=== PATIENT | male | born 1940 | race Caucasian/White ===

== ENCOUNTER → 2020-01-22 11:19 | Outpatient (CLI) | payer MEDICARE, OTHER, SELFPAY ==
[2016-01-22 05:52] VITALS: BMI 25.4
== END ==
PROVIDERS: Referring Provider Urology; Visit Provider Urology
DX: N39.0 Urinary tract infection, site not specified (principal)
CPT/HCPCS: 87077; 87086; 87088; 87186

== ENCOUNTER → 2020-01-31 07:19 | Outpatient (CLI) | payer MEDICARE, SELFPAY ==
--- NOTE | 2020-01-31 07:23 | CT_ITS ---
STUDY: CT ABDOMEN AND PELVIS WITHOUT CONTRAST REASON FOR EXAM: Male, 79 years old. HEMATURIA/KIDNEY STONES -- SURG-GB RADIATION DOSAGE (If Supplied By Facility): CTDIvol = ( 6.62 ) mGy, DLP = ( 340.95 ) mGycm TECHNIQUE: Transaxial images were obtained from the dome of the diaphragm to the symphysis pubis without oral contrast, and without intravenous contrast. Sagittal and coronal images were reconstructed. Individualized dose optimization techniques were used for this CT. COMPARISON: Comparison is made with prior examination of October 03, 2015. FINDINGS: The visualized lung bases are unremarkable. Coronary artery calcifications. Normal liver. Calcified granuloma in the dome of the right lobe of the liver. There are surgical clips in the gallbladder fossa consistent with a prior cholecystectomy. There are multiple benign calcified granulomata of the spleen. There are pancreatic calcifications in the distribution of the ducts consistent with chronic pancreatitis. Normal bilateral adrenal glands. Normal right kidney. There is a 3.1 cm x 3.3 cm cyst in the anterior inferior aspect of the left kidney. There is a 5.4 mm calculus in the lower posterior pole of the left kidney. Normal visualized stomach. Normal small intestine. Normal colon. The appendix is visualized and appears normal. There is diffuse atherosclerotic calcification of the abdominal aorta, without a demonstrated aneurysm. Normal inferior vena cava. There is borderline retroperitoneal lymphadenopathy with enlarged nodes no greater than 10mm in the short axis diameter. There is a faint 2.7 cm x 3.7 cm polypoid lesion at the base of the left side of the bladder. There is enlargement of the prostate gland. The questionable polypoid mass within the bladder base may represent protrusion of the prostate. Normal abdominal wall. There are mild degenerative changes of the visualized lumbar spine. CT/Abdomen/Pelvis without Cont IMPRESSION: Left renal cyst. 5.4 mm calculus in the lower pole calyx of the left kidney. Prostatic enlargement with indentation at the bladder base and possible protrusion into the bladder. Clinical correlation is recommended. Electronically Signed: Elie Mckeon, at 13:42 EST , Service support ,
== END ==
PROVIDERS: Referring Provider Urology; Visit Provider Urology
DX: R31.9 Hematuria, unspecified (principal)
CPT/HCPCS: 74176

== ENCOUNTER → 2020-06-19 17:43 | Outpatient (CLI) | payer MEDICARE, SELFPAY ==
[2016-01-22 05:52] VITALS: BMI 25.4
== END ==
PROVIDERS: Referring Provider Urology; Visit Provider Urology
DX: N39.0 Urinary tract infection, site not specified (principal)
CPT/HCPCS: 87077; 87086; 87088; 87186

== ENCOUNTER 2020-07-27 09:51 | Emergency (ER) | payer OTHER, MEDICARE, SELFPAY ==
[2020-07-27 09:52] VITALS: BP 152/106; PULSE 62; RESP 17; TEMP 36.3; O2SAT 99; BMI 23.5
--- NOTE | 2020-07-27 10:20 | RAD_ITS ---
STUDY: X-RAY CHEST REASON FOR EXAM: Male, 79 years old. CHEST PAIN FOR SEVERAL DAYS, HTN TECHNIQUE: Single AP portable view of the chest. COMPARISON: 01/22/2016 FINDINGS: The lungs are clear and expanded. There is no demonstrated pleural abnormality. Normal size heart. Normal mediastinum and gio. Normal visualized pulmonary arteries. Normal visualized aortic arch and descending thoracic aorta. Normal visualized thoracic spine. Normal visualized ribs, clavicles, and shoulders. There is no demonstrated abnormality of the visualized soft tissue structures of the upper abdomen. RAD/Chest 1 View (Portable) IMPRESSION: Normal x-ray examination of the chest. Electronically Signed: John Fleming MD at 11:15 EDT Tel , Service support ,
--- NOTE | 2020-07-27 10:20 | EKG12_ITS ---
Test Reason : REPEAT Blood Pressure : / mmHG Vent. Rate : 066 BPM Atrial Rate : 066 BPM P-R Int : 140 ms QRS Dur : 086 ms QT Int : 448 ms P-R-T Axes : 042 060 057 degrees QTc Int : 469 ms Sinus rhythm with occasional Premature ventricular complexes Otherwise normal ECG Confirmed by MICHELLE PEARSON, EFRAIN ([id number]), supervising film or videotape editor MICHAEL WADE ([id number]) on 07/31/2020 11:27:13 AM Referred By: CL Confirmed By:EFRAIN MARTINEZ MD
[2020-07-27 10:37] LABS: Absolute Neutrophil Count 4.1 X10^3/uL (2.0-7.7); Basophil# 0.01 X10^3/uL; Basophil% 0.2 % (0-1); Eosinophil# 0.04 X10^3/uL; Eosinophils% 0.7 % (0-5); Hematocrit 47.5 % (40-54); Hemoglobin 15.1 g/dL (13.0-16.5); Lymphocyte % 16.6 % (19-41); Mean Corp Hgb Conc 31.8 g/dL (32-36); Mean Corpuscular Hgb 27.9 pg (27.0-32.0); Mean Corpuscular Volume 87.6 fL (80-94); Mean Platelet Vol. 8.4 fl (6.2-12.0); Monocyte# 0.33 X10^3/uL; Monocyte% 6.1 % (0-10); NRBC Flagged by Analyzer 0 % (0-5); Neutrophil # 4.12 X10^3/uL (2.7-7.7); Platelet Count 172 K/mm3 (150-450); RBC Distribution Width CV 12.7 % (11.6-14.6); RBC Distribution Width SD 40.6 fl (35.1-43.9); Red Blood Count 5.42 M/mm3 (4.6-6.2); White Blood Count 5.4 K/mm3 (4.4-11.0)
[2020-07-27] MEDS: 0.9% Normal Saline 1,000 ML 1000 ML IV (10:46)
[2020-07-27 10:50] LABS: Anion Gap 3 (5-15); BUN 21 mg/dL (7-18); BUN/Creat Ratio 20.4 RATIO (10-20); Calcium,Total 9.2 mg/dL (8.5-10.1); Chloride 107 mmol/L (98-107); Creatinine, Serum 1.03 mg/dL (0.70-1.30); EST Glomerular Filtration Rate 74 mL/min (>60); Est Glom Filt Rate - Afr Amer 90 mL/min (>60); Estimated Creatinine Clearance 60.06 ml/min; Glucose 96 mg/dL (74-106); Potassium 4.2 mmol/L (3.5-5.1); Sodium Level 140 mmol/L (136-145)
[2020-07-27 11:39] VITALS: BP 181/86; PULSE 65; RESP 16; O2SAT 98; O2SAT 99
[2020-07-27 11:45] LABS: Bacteria 0 SEEN /hpf (None Seen); Mucous, Urine 0 SEEN /hpf (<or=2+); Squamous Epithelial Cells - UA 0 SEEN /hpf (0-5); White Blood Cells 0 SEEN /hpf (0-5)
[2020-07-27 11:52] LABS: Color, Urine Yellow (Yellow); Glucose, Dipstick Normal (Normal); Ketone-Dipstick Negative (Negative); Leukocyte Esterase-Dipstick Negative /ul (Negative); Nitrite-Dipstick Negative (Negative); Occult Blood-Urine 10 /ul (Negative); Protein-Dipstick Negative (Negative); Urine Bilirubin Dipstick Negative (Negative); Urine Clarity Clear (Clear); Urine Urobilinogen Normal (Normal)
[2020-07-27 12:11] LABS: Red Blood Cells-Urine 0-5 SEEN /hpf (0-5)
[2020-07-27 12:55] VITALS: BP 171/78; PULSE 63; RESP 18; O2SAT 97
[2020-07-27] MEDS: Labetalol (Prefilled) 20 MG/4 ML IV (13:02)
--- NOTE | 2020-07-27 13:30 | EKG12_ITS ---
Test Reason : CP Blood Pressure : / mmHG Vent. Rate : 066 BPM Atrial Rate : 066 BPM P-R Int : 138 ms QRS Dur : 088 ms QT Int : 424 ms P-R-T Axes : 028 062 060 degrees QTc Int : 444 ms Sinus rhythm with occasional Premature ventricular complexes Otherwise normal ECG Confirmed by MICHELLE PEARSON, EFRAIN ([id number]), judicial clerk MICHAEL WADE ([id number]) on 07/31/2020 11:27:00 AM Referred By: Confirmed By:EFRAIN MARTINEZ MD
[2020-07-27 13:51] VITALS: BP 142/69; PULSE 73; RESP 16; TEMP 36.8; O2SAT 98
--- NOTE | 2020-07-27 13:51 | ED.RN ---
Patient's rhythm on the monitor shows ventricular trigeminy. Dr Fournier notified.
--- NOTE | 2020-07-27 14:06 | ED.VIS.GEN ---
History of Present Illness Chief Complaint: Chest Pain Narrative: 79-year-old male with past medical history of hypertension and coronary artery disease presents with concern for palpitations and chest pain. States it is been intermittent over the past 1 week. Was concerned because he had elevated blood pressure home. States that the pain was not present this morning. Denies any shortness of breath, nausea, vomiting, diaphoresis. Does have a history of coronary artery angi[facility] done at the [facility] approximately 5 years ago. Past Medical History - Allergies and Home Meds Allergies/Adverse Reactions: Allergies No Known Allergies Allergy (Verified 07/27/20 09:52) Primary Care Physician: [facility] [Primary Care Provider] - Past Medical History: - - HTN, CAD, BPH Surgical History: angioplasty Lives: With Family Smoking Status: Never smoker Alcohol: None Drugs: None Review of Systems General: Denies: Chills, Fever, Sweats Eyes: Denies: Visual changes - bilaterally, Diplopia ENT: Denies: Rhinorrhea, Sore throat Cardiovascular: Reports: Chest pain, Palpitations Respiratory: Denies: Dyspnea, Cough, Dyspnea on exertion Gastrointestinal: Denies: Abdominal pain, Nausea, Vomiting, Diarrhea, Melena, Hematochezia Genitourinary: Denies: Dysuria, Hematuria, Frequency Musculoskeletal: Denies: Back pain, Extremity Pain Skin: Denies: Rash, Wounds Neurological: Denies: Headache, Weakness, Numbness Physical Exam Vital Signs/Narrative: Vital Signs Temp Pulse Resp BP Pulse Ox 07/27/20 13:51 98.2 F 73 16 142/69 H 98 07/27/20 12:55 63 18 171/78 H 97 07/27/20 11:39 65 16 181/86 H 99 Inital Vital Signs reviewed: Yes General: Well nourished, Well developed, No Acute Distress Head: Normocephalic, Atraumatic Eyes: Perrl, EOMI ENT: Moist mucous membranes, No rhinorrhea Neck: Supple, Nontender Cardiovascular: Regular rate, Regular rhythm, No murmurs Respiratory: No distress, CTA bilaterally, Chest nontender Abdomen: Soft, Nontender, Nondistended, Normal bowel sounds Back: Nontender, Normal Inspection Extremities: Nontender, No edema Skin: Normal color, No rash Neurological: Alert, Oriented x3, Cranial nerves II-XII grossly intact, Normal Strength, Normal Sensation Psychological: Normal affect, Normal Mood Diagnostic/Tx/Re-eval Chest X-Ray - ED: 1 View, Normal Clinical Impression(s) from Imaging Studies Chest X-Ray 07/27/20 10:20 IMPRESSION: Normal x-ray examination of the chest. Electronically Signed: John Fleming MD at 11:15 EDT Tel , Service support , Laboratory Data 07/27/20 07/27/20 07/27/20 10:25 10:25 11:43 WBC 5.4 RBC 5.42 Hgb 15.1 Hct 47.5 MCV 87.6 MCH 27.9 MCHC 31.8 L RDW Std Deviation 40.6 RDW Coeff of Alison 12.7 Plt Count 172 MPV 8.4 Immature Gran % (Auto) 0.400 Neut % (Auto) 76.0 H Lymph % (Auto) 16.6 L Vernon % (Auto) 6.1 Eos % (Auto) 0.7 Baso % (Auto) 0.2 Absolute Neuts (auto) 4.1 Absolute Lymphs (auto) 0.90 Nucleated RBC % 0 Sodium 140 Potassium 4.2 Chloride 107 Carbon Dioxide 30.0 Anion Gap 3 L BUN 21 H Creatinine 1.03 Estim Creat Clear Calc 60.06 Est GFR (MDRD) Af Amer 90 Est GFR (MDRD) Non-Af 74 BUN/Creatinine Ratio 20.4 H Glucose 96 Calcium 9.2 Magnesium Troponin I < 0.015 Urine Color Yellow Urine Clarity Clear Urine pH 7.0 Ur Specific Girard 1.010 Urine Protein Negative Urine Glucose (UA) Normal Urine Ketones Negative Urine Occult Blood 10 H Urine Nitrite Negative Urine Bilirubin Negative Urine Urobilinogen Normal Ur Leukocyte Esterase Negative Urine RBC 0-5 SEEN Urine WBC 0 SEEN Ur Squamous Epith Cells 0 SEEN Urine Bacteria 0 SEEN Urine Mucus 0 SEEN 07/27/20 07/27/20 13:20 13:20 WBC RBC Hgb Hct MCV MCH MCHC RDW Std Deviation RDW Coeff of Alison Plt Count MPV Immature Gran % (Auto) Neut % (Auto) Lymph % (Auto) Vernon % (Auto) Eos % (Auto) Baso % (Auto) Absolute Neuts (auto) Absolute Lymphs (auto) Nucleated RBC % Sodium Potassium Chloride Carbon Dioxide Anion Gap BUN Creatinine Estim Creat Clear Calc Est GFR (MDRD) Af Amer Est GFR (MDRD) Non-Af BUN/Creatinine Ratio Glucose Calcium Magnesium 2.1 Troponin I < 0.015 Urine Color Urine Clarity Urine pH Ur Specific Girard Urine Protein Urine Glucose (UA) Urine Ketones Urine Occult Blood Urine Nitrite Urine Bilirubin Urine Urobilinogen Ur Leukocyte Esterase Urine RBC Urine WBC Ur Squamous Epith Cells Urine Bacteria Urine Mucus - Rhythm Strip Rhythm Strip: Sinus Rhythm Rate: 66 Ectopy: PVC(s) - EKG Initial EKG Interpretation: Sinus Rhythm - Sinus rhythm at 66 bpm. DE interval of 138 ms. QTC of 444 ms. Frequent PVCs. No evidence of acute ischemia. - Medical Decision Making Patient appears well and nontoxic. Vital signs within normal limits. EKG showed frequent PVCs. Intermittently patient will have rhythm strip showing ventricular trigeminy. Two troponin by 3 hours are negative. Chest x-ray normal. Electrolytes within normal limits including magnesium. Spoke with our information technology teacher on-call Dr. Leiva suggested follow-up with his information technology teacher at [facility] for possible outpatient heart monitoring. Also felt it was reasonable to increase the patient's atenolol to 50 mg from 25 mg. Patient agreeable this plan and discharged in stable condition. Impression: 1. Atypical chest pain 2. Palpitations 3. Ventricular trigeminy ED Disposition - Plan for ED Patient: Disposition: Home or Assisted Living Instructions: ED Chest Pain Atypical Unkn Cause [facility] [Primary Care Provider] - Additional Instructions: Please increase your atenolol from 25 to 50 mg. Follow-up with your information technology teacher at the [facility] within the next 48 hours.
[2020-07-27 14:28] LABS: Magnesium 2.1 mg/dL (1.6-2.6)
[2020-07-27 14:55] VITALS: BP 153/67; PULSE 70; RESP 14; O2SAT 97
== END 2020-07-27 15:03 | disposition home or self-care (01) ==
PROVIDERS: Emergency Provider Emergency Medicine
DX: R07.89 Other chest pain (principal); R00.2 Palpitations; R00.8 Other abnormalities of heart beat; I25.10 Atherosclerotic heart disease of native coronary artery without angina pectoris; I10 Essential (primary) hypertension; N40.0 Benign prostatic hyperplasia without lower urinary tract symptoms; Z79.82 Long term (current) use of aspirin; Z79.899 Other long term (current) drug therapy
CPT/HCPCS: 71045; 80048; 81001; 83735; 84484; 85025; 93005; 96361; 96374; 99284; J7030; A4216

== ENCOUNTER 2020-09-06 16:12 | Inpatient (IN) | payer MEDICARE, SELFPAY ==
--- NOTE | 2020-08-29 08:35 | EKG12_ITS ---
Test Reason : PRE OP Blood Pressure : / mmHG Vent. Rate : 065 BPM Atrial Rate : 065 BPM P-R Int : 156 ms QRS Dur : 090 ms QT Int : 418 ms P-R-T Axes : 023 045 037 degrees QTc Int : 434 ms Normal sinus rhythm Normal ECG Confirmed by IVETH PEARSON, HOLDEN ([id number]), health editor MICHAEL WADE ([id number]) on 09/01/2020 2:32:09 PM Referred By: Liborio Gonzalez Confirmed By:CORINA LAZARO MD
[2020-09-05] VITALS (11 sets, daily range): BP systolic 87–164; BP diastolic 46–82; PULSE 59–84; RESP 16–18; TEMP 35.8–37; O2SAT 96–100; BMI 23.3
[2020-09-05] MEDS: Lactated Ringers 1,000 ML 100 ML IV ×2 (10:10→13:35)
--- NOTE | 2020-09-05 10:55 | PROS_PTH ---
PATIENT: ANA HARRIS LOC: MS3 U#:[id number] AGE/SX: 79/M ROOM: MS308 RE09/06/[address]: Dr. Liborio Gonzalez MD : [id number] BED: 1 DIS: 09/07/2020 SPEC #: [id number] RECD: 09/05/20 13:34 STATUS: BRIANA CHARLES #: [id number] [place]: 09/05/20 10:[address]: Liborio Gonzalez DEPT: SURGICAL PATHOLOGY RECD BY: Laury Irwin ENTERED: 09/08/20 07:02 SP TYPE: TURP OTHR DR: Dr. 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 Urothelium with mild chronic inflammation. AM:georgi 09/09/20 MICROSCOPIC DESCRIPTION Slides are reviewed. GROSS DESCRIPTION Received is one container labeled with the patient's name and designated prostate chips. The specimen consists of multiple irregular fragments of pink-marin, rubbery, soft tissue that in aggregate weigh 22 gm and measure in aggregate 6 x 6 x 2 cm. [employer] Consultant portions are submitted in ten cassettes. / AM:georgi 09/08/20 TC:3 CPT: 74104
[2020-09-05] MEDS: Cefazolin 2 GM in 0.9% Normal Saline 100 ML IV (11:06)
--- NOTE | 2020-09-05 11:13 | PCM.HP.STD ---
Problem List (1) BPH with obstruction/lower urinary tract symptoms Status: Acute History of Present Illness Date of Admission: 09/05/20 Chief Complaint: BPH with obstruction The patient is a 79 year old male with a history of BPH with obstruction is on medical therapy is failed medical therapy can proceed with a TURP we talk about the risk of procedure including bleeding, infection, retrograde dilation, bladder neck contracture, scar tissue, failure to alleviate symptoms. After all this was revealed with reviewed with the patient the risk and benefits were reviewed he wishes to proceed with a TURP. Past Medical History Allergies No Known Allergies Allergy (Verified 08/27/20 08:10) Home Medications: Ambulatory Orders Medication Instructions Recorded Atenolol [Tenormin (beta kaylee)] 25 mg PO DAILY 10/03/15 Atorvastatin Calcium [Lipitor] 80 mg PO QHS 10/03/15 Lisinopril [Zestril] 2.5 mg PO QHS 10/03/15 Nitroglycerin [Nitrostat] 0.4 mg SL PRN PRN 10/03/15 Omeprazole [Prilosec] 20 mg PO DAILY 10/03/15 hydrOXYzine pamoate capsule 25 mg PO BID PRN PRN 10/03/15 [Vistaril pamoate capsule] Acetaminophen [Acetaminophen Extra 500 mg PO DAILY 07/27/20 Strength] Ciprofloxacin [Cipro] 500 mg PO BID #14 tab 09/05/20 Hydrocodone/Acetaminophen [Darfur 1 each PO Q4H PRN PRN 7 Days #14 09/05/20 5-325 Tablet] tablet Surgical History: angioplasty Smoking Status: Never smoker Tobacco Use: Non-smoker - *Family History Maternal History Items: No pertinent history Review of Systems Constitutional: Denies: Chills, Fever, Weight Change HEENT: Denies: Head Aches, Sinus Congestion, Sinus Drainage Cardiovascular: Denies: Chest Pain, Palpitations Respiratory: Denies: Cough, Shortness of breath at rest, Sputum production Gastrointestinal: Denies: Abdominal Pain, Nausea, Vomiting Genitourinary: Denies: Dysuria Musculoskeletal: Denies: Joint Pain, Joint Tenderness Skin: Denies: Rash, Wounds Neurological: Denies: Numbness, Tingling, Focal weakness Psychiatric: Denies: Anxiety, Depression, Homicidal Ideations, Suicidal Ideations Hematologic/ Lymphatic: Denies: Easy Bruising, Easy Bleeding VTE Information - Inpt Only VTE Present on Admission: No Patient Problems: Active and Suspected Problems BPH with obstruction/lower urinary tract symptoms (Acute) - Physical Exam Vitals/I&O's: Vital Signs Temp Pulse Resp BP Pulse Ox 98.2 F 64 16 150/67 H 100 09/05/20 09:50 09/05/20 09:50 09/05/20 09:50 09/05/20 09:50 09/05/20 09:50 Oxygen Delivery Method Room Air Weight: 71.6 kg Body Mass Index (BMI) 23.5 General: Alert, Oriented x3, Cooperative HEENT: Atraumatic, PERRLA, EOMI, Normocephalic Neck: Supple, No JVD, Negative Carotid Bruits Lungs: Clear to auscultation, Normal air movement Cardiovascular: Regular rate, No murmurs Abdomen: Bowel Sounds Present, Soft, Non Tender Extremities: No edema, Capillary Refill Less than 3 Seconds Skin: No rashes, No breakdown Musculoskeletal: No Tenderness to Palpation of Joints or Extremities Neurological: Cranial nerves II-XII grossly intact Psych/Mental Status: Normal Affect, Appropriate Current Medications Acetaminophen (Tylenol) 325 mg PO Q4H PRN PRN PRN Reason: Pain Score 1-10 Acetaminophen (Tylenol) 500 mg PO DAILY [facility] Al Hydroxide/Mg Hydroxide (Mylanta Ii) 30 ml PO Q4H PRN PRN PRN Reason: Heartburn Atenolol (Tenormin (Beta Kaylee)) 25 mg PO DAILY [facility] Atorvastatin Calcium (Lipitor) 80 mg PO QHS [facility] Belladonna Alkaloids/Opium (B & O) 60 mg RECTAL Q6H PRN PRN PRN Reason: Spasm Docusate Sodium (Colace) 100 mg PO BID [facility] Hydroxyzine Pamoate (Vistaril Pamoate Capsule) 25 mg PO BID PRN PRN PRN Reason: NERVES Cefazolin Sodium 2 gm/ Sodium (Chloride) 110 mls @ 150 mls/hr IV PREOP ONE Stop: 09/05/20 11:38 Lactated Ringer's () 1,000 mls @ 100 mls/hr IV .Q10H MICHEAL Last Admin: 09/05/20 10:10 Dose: 100 mls/hr Documented by: Sodium Chloride () 1,000 mls @ 125 mls/hr IV .Q8H [facility] Ciprofloxacin (Cipro) 400 mg in 200 mls @ 200 mls/hr IV Q12 [facility] Stop: 09/06/20 10:59 Ibuprofen (Motrin) 600 mg PO Q6H PRN PRN PRN Reason: Pain Score 1-10 Lisinopril (Zestril) 2.5 mg PO QHS [facility] Non-Formulary Medication (Nitroglycerin [Nitrostat]) 0.4 mg SL PRN PRN PRN Reason: cp Non-Formulary Medication (Omeprazole [Prilosec]) 20 mg PO DAILY [facility] Ondansetron HCl (Zofran) 4 mg IV Q6H PRN PRN PRN Reason: Nausea Oxycodone HCl (Oxyir) 5 mg PO Q4H PRN PRN PRN Reason: Pain Score 1-10 Pantoprazole Sodium (Protonix) 40 mg PO DAILY [facility] Tolterodine Tartrate (Detrol La) 4 mg PO DAILY PRN PRN PRN Reason: Spasms Assessment/Plan All Active Problems BPH with obstruction/lower urinary tract symptoms (Acute) Plan to proceed with a TURP
--- NOTE | 2020-09-05 11:15 | DCINST_ITS ---
Discharge Diet: No Restrictions, Light diet - advance as tolerated Discharge Activity: Return to Normal Activity, May Not Drive - for 2 days. Additional Activity Instructions:: Please be aware that pain medications may cause nausea. You should typically eat light foods as you take your pain medication. Pain medication may cause constipation, if this is a problem for you, please discuss with your doctor. Call your doctor if your incision/area has: Continuous Slow Oozing, Sudden Incr eased Bleeding, Increased Pain/ Swelling, Increased Redness, Foul Smelling Discharge, Swelling at the incision site Call your doctor if you observe: Fever of 101 or Higher, Inability to urinate Suture Line Care: Avoid Pulling/Pushing, Avoid Pinching/Bending Instructions: Transurethral Resection of the Prostate (TURP): Home Recovery Allergies/Adverse Reactions: Allergies No Known Allergies Allergy (Verified 08/27/20 08:10) Medications to take at Discharge Atenolol [Tenormin (beta jeffrey)] 25 mg PO DAILY 10/03/15 Atorvastatin Calcium [Lipitor] 80 mg PO QHS 10/03/15 Lisinopril [Zestril] 2.5 mg PO QHS 10/03/15 Nitroglycerin [Nitrostat] 0.4 mg SL PRN PRN 10/03/15 Omeprazole [Prilosec] 20 mg PO DAILY 10/03/15 hydrOXYzine pamoate capsule [Vistaril pamoate capsule] 25 mg PO BID PRN PRN 10/03/15 Acetaminophen [Acetaminophen Extra Strength] 500 mg PO DAILY 07/27/20 Ciprofloxacin [Cipro] 500 mg PO BID #14 tab 09/05/20 Hydrocodone/Acetaminophen [Columbia 5-325 Tablet] 1 each PO Q4H PRN PRN 7 Days #14 tablet 09/05/20 The following prescriptions were given: Ciprofloxacin [Cipro] 500 mg PO BID #14 tab Transmission Status: Pending to [id number] Hydrocodone/Acetaminophen [Columbia 5-325 Tablet] 1 each PO Q4H PRN PRN 7 Days #14 tablet PRN Reason: Pain Score 1-10 [id number] Primary Care Physician: [facility] [Primary Care Provider] - Test Results: Test results from this visit will be discussed in further detail at your follow- up appointment, if applicable. Please Follow Up With: Liborio Gonzalez MD When: in 2 weeks, please call to make an appointment.
--- NOTE | 2020-09-05 12:49 | PCM.OPRPT ---
Problem List (1) BPH with obstruction/lower urinary tract symptoms Status: Acute Report of Operation Date of Procedure: 09/05/20 Pre-Operative Diagnosis: BPH with obstruction Post-Operative Diagnosis: Same Surgery/Procedure Performed:: Transurethral resection of prostate Description of Surgical Findings:: 79-year-old male had a very large prostate he is on dual medical therapy with Proscar and terazosin still having difficulty with going to the bathroom difficulty emptying his bladder and incomplete bladder emptying so today we can proceed with a TURP. Patient was taken back to the operating room after smooth induction of general anesthesia he was placed in dorsolithotomy position went in the bladder with a 24 Slovenian noncontinuous flow resectoscope once I got inside the bladder then he had bilateral hypertrophy I then started resecting resecting at the bladder neck back to the verumontanum did not resect past the verumontanum resected the right lobe of the prostate resect the left low the prostate at a wide open channel from the verumontanum into the bladder and a lot of tissue in the roof exceedingly a lot of tissue in the roof of the spent a long time of the roof resecting the tissue but being very careful not to injure the sphincter during the resection. At the end of the resection time which was over an hour I then Ellik out all the chips the bladder spent a long time irrigating the bladder again all the clots out and then on continuous bladder irrigation the urine was clear patient acetic was reversed and was taken back to PACU in good condition at the end of the case both the light right and left ureteral orifice were identified and were clear and open and patent uninjured during the procedure bladder neck was wide open the sphincter was intact and the verumontanum was left intact as well. Type of Anesthesia:: General Drains: 3 way - Admit VTE Documentation VTE Present on Admission: No VTE Mechan Device Prophylaxis: SCD's
[2020-09-05] MEDS: 0.9% Normal Saline 1,000 ML 125 ML IV ×2 (14:43→22:18)
[2020-09-05] MEDS: 0.9% Normal Saline 1,000 ML 999 ML IV (21:05)
[2020-09-05] MEDS: Docusate Sodium 100 MG Capsule PO (21:12)
[2020-09-05] MEDS: Atorvastatin Calcium 80 MG Tablet PO (21:12)
[2020-09-05] MEDS: Mag Hydrox/Al Hydrox/Simeth 30 ML UDC PO (22:17)
[2020-09-05] MEDS: Ciprofloxacin 400 MG/200 ML BAG 200 MG IV (22:18)
[2020-09-06 03:00] VITALS: BP 98/51; PULSE 75; RESP 18; TEMP 36.9; O2SAT 98
[2020-09-06 05:13] VITALS: BP 90/44; PULSE 78; RESP 18; TEMP 36.8; O2SAT 98
[2020-09-06] MEDS: 0.9% Normal Saline 1,000 ML 125 ML IV ×3 (07:32→23:49)
[2020-09-06 07:33] LABS: Hemoglobin 9.1 g/dL (13.0-16.5); Mean Corp Hgb Conc 32.5 g/dL (32-36); Mean Corpuscular Hgb 28.4 pg (27.0-32.0); Mean Corpuscular Volume 87.5 fL (80-94); Mean Platelet Vol. 8.9 fl (6.2-12.0); Platelet Count 177 K/mm3 (150-450); RBC Distribution Width CV 13.4 % (11.6-14.6); RBC Distribution Width SD 42.8 fl (35.1-43.9); White Blood Count 12.3 K/mm3 (4.4-11.0)
[2020-09-06] MEDS: Acetaminophen 500 MG Tablet PO (07:34)
[2020-09-06] MEDS: Pantoprazole Sodium 40 MG Tablet PO (07:35)
[2020-09-06] MEDS: Docusate Sodium 100 MG Capsule PO ×2 (07:35→22:29)
[2020-09-06] MEDS: Atenolol 25 MG Tablet PO (07:35)
--- NOTE | 2020-09-06 07:37 | PCM.PN.BLA ---
Progress Note 79-year-old male underwent a TURP yesterday heavy bleeding after the TURP had to put a lot of pressure on the prostate and traction nurses had to irrigate a lot finally this morning the bleeding is stopped but hemoglobin did drop really continue to watch this he is not can go home organ to watch him he can be out of bed continue with irrigation probably hopefully get the catheter out tomorrow. STROKE Vital Signs/Narrative: Vital Signs Temp Pulse Resp BP Pulse Ox 09/06/20 05:13 98.3 F 78 18 90/44 L 98
[2020-09-06 07:51] LABS: Anion Gap 5 (5-15); BUN 23 mg/dL (7-18); BUN/Creat Ratio 18.3 RATIO (10-20); Calcium,Total 7.9 mg/dL (8.5-10.1); Chloride 107 mmol/L (98-107); Creatinine, Serum 1.26 mg/dL (0.70-1.30); EST Glomerular Filtration Rate 59 mL/min (>60); Est Glom Filt Rate - Afr Amer 71 mL/min (>60); Glucose 152 mg/dL (74-106); Potassium 4.6 mmol/L (3.5-5.1); Sodium Level 137 mmol/L (136-145)
[2020-09-06 07:52] VITALS: BP 107/54; PULSE 79; RESP 16; TEMP 37.1; O2SAT 97
[2020-09-06] MEDS: Bisacodyl 10 MG Suppository RECTAL (08:57)
[2020-09-06] MEDS: Ciprofloxacin 400 MG/200 ML BAG 200 MG IV (09:56)
[2020-09-06 14:43] VITALS: BP 117/72; PULSE 76; RESP 16; TEMP 37; O2SAT 98
--- NOTE | 2020-09-06 16:12 | CM.UR ---
Addendum entered by Misty Cerna 09/06/20 16:27: Met face to face with patient who denied no discharge needs. Clarification to above. Patient did not experience complications but the procedure was difficult. Lior Cerna RN, CCM. Original Note: Reviewed chart. Noted complications. Patient remains on irrigation. Changed to IP admission. [place]: 92. Lior Cerna RN, CCM.
[2020-09-06] MEDS: Lisinopril 5 MG Tablet 2.5 MG PO (22:29)
[2020-09-06] MEDS: Atorvastatin Calcium 80 MG Tablet PO (22:29)
[2020-09-06 22:30] VITALS: BP 116/49; PULSE 78; RESP 16; TEMP 37.3; O2SAT 99
[2020-09-07 03:55] VITALS: BP 124/58; PULSE 77; RESP 16; TEMP 36.9; O2SAT 99
[2020-09-07] MEDS: 0.9% Normal Saline 1,000 ML 125 ML IV (07:53)
--- NOTE | 2020-09-07 08:43 | EKG12_ITS ---
Test Reason : Blood Pressure : / mmHG Vent. Rate : 099 BPM Atrial Rate : 099 BPM P-R Int : 144 ms QRS Dur : 088 ms QT Int : 320 ms P-R-T Axes : 059 049 -62 degrees QTc Int : 410 ms Sinus rhythm with marked sinus arrhythmia with occasional Premature ventricular complexes ST & T wave abnormality, consider inferior ischemia ST & T wave abnormality, consider anterolateral ischemia Abnormal ECG When compared with ECG of 29-AUG-2020 08:44, Significant changes have occurred Confirmed by IVETH PEARSON, HOLDEN ([id number]), development editor MICHAEL WADE ([id number]) on 09/10/2020 11:22:20 AM Referred By: Liborio Gonzalez Confirmed By:CORINA LAZARO MD
[2020-09-07 08:59] VITALS: BP 154/62; PULSE 73; RESP 18; TEMP 36.4; O2SAT 100
--- NOTE | 2020-09-07 09:14 | PCM.PN.BLA ---
Progress Note 79-year-old male this morning nurse informed me that he complained of some atypical chest pain was not crushing no diaphoresis diaphoretic he is not short of breath he is not having severe pain he is not in any panic does not appear to be a coronary syndrome but we did do an EKG some slight ST segment depression on V4 will have medical service evaluate him. Remove the catheter this morning the urine was fairly clear. Hopefully he will be able to urinate okay later today. Hopefully he will be cleared by medical. If he is cleared by medical and is able to urinate he can go home later today. STROKE Vital Signs/Narrative: Vital Signs Temp Pulse Resp BP Pulse Ox 09/07/20 08:59 97.6 F L 73 18 154/62 H 100
[2020-09-07 09:55] LABS: Absolute Lymphocyte Count 1.57 X10^3/uL (0.83-4.51); Absolute Neutrophil Count 8.3 X10^3/uL (2.0-7.7); Basophil# 0.02 X10^3/uL; Basophil% 0.2 % (0-1); Eosinophil# 0.27 X10^3/uL; Eosinophils% 2.5 % (0-5); Hematocrit 26.6 % (40-54); Hemoglobin 8.4 g/dL (13.0-16.5); Lymphocyte # 1.57 X10^3/ul (4.0); Lymphocyte % 14.4 % (19-41); Mean Corp Hgb Conc 31.6 g/dL (32-36); Mean Corpuscular Hgb 28.7 pg (27.0-32.0); Mean Corpuscular Volume 90.8 fL (80-94); Mean Platelet Vol. 9.1 fl (6.2-12.0); Monocyte# 0.64 X10^3/uL; Monocyte% 5.9 % (0-10); NRBC Flagged by Analyzer 0 % (0-5); Neutrophil # 8.33 X10^3/uL (2.7-7.7); Neutrophil % 76.4 % (47-70); Platelet Count 166 K/mm3 (150-450); RBC Distribution Width CV 13.8 % (11.6-14.6); RBC Distribution Width SD 45.7 fl (35.1-43.9); Red Blood Count 2.93 M/mm3 (4.6-6.2); White Blood Count 10.9 K/mm3 (4.4-11.0)
--- NOTE | 2020-09-07 10:00 | PN_ITS ---
Patient Problems: Active and Suspected Problems BPH with obstruction/lower urinary tract symptoms (Acute) Subjective: Patient is a 79 y/o with a PMH of CAD s/p stents, hypertension and BPH s/p TURP. He was admitted to the urology service for TURP. Patient started complaining of chest pressure today, so hospitalist service was consulted for medical management. Patient seen and examined. He said he had chest pressure when he was eating breakfast. He had some chest pressure, but denied any overt pain, any palpitations, dizziness, lightheadedness, nausea, abdominal pain, diarrhea or vomiting. Review of systems is otherwise negative. he last had his stents 10 years ago, and says he is on aspirin. He is no longer on plavix. Vitals shwoed Tep of 97.6F, with BP of 154/62, CO of 73 and RR of 18. CBC showed hb of 8.4. Troponin series pending. EKG showed some ST depression in inferolateral leads. Vitals/I&O's: Vital Signs Temp Pulse Resp BP Pulse Ox 97.6 F L 73 18 154/62 H 100 09/07/20 08:59 09/07/20 08:59 09/07/20 08:59 09/07/20 08:59 09/07/20 08:59 Oxygen Delivery Method Room Air Weight: 157 lb 13.616 oz Body Mass Index (BMI) 23.3 Intake and Output for Last 24 Hours 09/05/20 09/06/20 09/07/20 23:59 23:59 23:59 Intake Total 3629.59 / 3629.59 4933.34 / 4933.34 1100 / 1100 Output Total 7070 / 7070 5700 / 5700 2100 / 2100 Balance -3440.41 / -3440.41 -766.66 / -766.66 -1000 / -1000 General: Alert, Oriented x3, Cooperative, No apparent distress HEENT: Atraumatic, PERRLA, EOMI, Normocephalic Oral: Moist Mucosa Neck: Supple, No JVD, Negative Carotid Bruits Lungs: Clear to auscultation, Normal air movement, No rhonchi, No wheeze, No rales Cardiovascular: Regular rate, Regular Rhythm, Normal S1, Normal S2, No murmurs Abdomen: Bowel Sounds Present, Soft, Non Tender, Non-Distended, No Hepato- splenomegaly Extremities: No clubbing, No cyanosis, No edema, Capillary Refill Less than 3 Seconds Skin: No rashes, No breakdown Musculoskeletal: No Tenderness to Palpation of Joints or Extremities Lymphatic: No Cervical, Supraclavicular, or Inguinal Adenopathy Neurological: Cranial nerves II-XII grossly intact, Neuro grossly intact, Motor Exam 5/5 strength throughout Psych/Mental Status: Normal Affect, Appropriate, Alert and oriented to time, place, person, mood and affect Laboratory Results 09/07/20 09:35: Troponin I Pending 09/07/20 09:35: WBC 10.9, RBC 2.93 L, Hgb 8.4 L, Hct 26.6 L, MCV 90.8, MCH 28.7, MCHC 31.6 L, RDW Std Deviation 45.7 H, RDW Coeff of Alison 13.8, Plt Count 166, MPV 9.1, Immature Gran % (Auto) 0.600, Neut % (Auto) 76.4 H, Lymph % (Auto) 14.4 L, Christian % (Auto) 5.9, Eos % (Auto) 2.5, Baso % (Auto) 0.2, Absolute Neuts (auto) 8.3 H, Absolute Lymphs (auto) 1.57, Nucleated RBC % 0 Current Medications Acetaminophen (Tylenol) 325 mg PO Q4H PRN PRN PRN Reason: Pain Score 1-10 Acetaminophen (Tylenol) 500 mg PO Q48@0800 [facility] Last Admin: 09/06/20 07:34 Dose: 500 mg Documented by: Al Hydroxide/Mg Hydroxide (Mylanta Ii) 30 ml PO Q4H PRN PRN PRN Reason: Heartburn Last Admin: 09/05/20 22:17 Dose: 30 ml Documented by: Atenolol (Tenormin (Beta Kaylee)) 25 mg PO DAILY [facility] Last Admin: 09/06/20 07:35 Dose: 25 mg Documented by: Atorvastatin Calcium (Lipitor) 80 mg PO QHS [facility] Last Admin: 09/06/20 22:29 Dose: 80 mg Documented by: Docusate Sodium (Colace) 100 mg PO BID [facility] Last Admin: 09/06/20 22:29 Dose: 100 mg Documented by: Hydroxyzine Pamoate (Vistaril Pamoate Capsule) 25 mg PO BID PRN PRN PRN Reason: NERVES Sodium Chloride () 1,000 mls @ 125 mls/hr IV .Q8H [facility] Last Admin: 09/07/20 07:53 Dose: 125 mls/hr Documented by: Sodium Chloride () 250 mls @ 15 mls/hr IV .[id number] PRN PRN Reason: Saline Flush Sodium Chloride () 250 mls @ 15 mls/hr IV .[id number] PRN PRN Reason: Additional IVPB Infusion Lisinopril (Zestril) 2.5 mg PO QHS [facility] Last Admin: 09/06/20 22:29 Dose: 2.5 mg Documented by: Nitroglycerin (Nitrostat) 0.4 mg SUBLINGUAL Q5M PRN PRN Reason: CARDIAC/ CHEST PAIN Pantoprazole Sodium (Protonix) 40 mg PO DAILY [facility] Last Admin: 09/06/20 07:35 Dose: 40 mg Documented by: Sodium Chloride () 10 - 40 ml IV UD PRN PRN Reason: SALINE FLUSH STROKE Vital Signs/Narrative: Vital Signs Temp Pulse Resp BP Pulse Ox 09/07/20 08:59 97.6 F L 73 18 154/62 H 100 Medical Necessity - Tobacco Use Smoking Status: Never smoker Tobacco Use: Non-smoker Assessment/Plan All Active Problems BPH with obstruction/lower urinary tract symptoms (Acute) #Chest pressure * had a brief episode of chest pressure whilst eating breakfast today, but had resolved at time of review * Bp is 154/62 * EKG showed mild ST depression in inferolateral leads. * troponin series ordered * SL nitroglycerin prn; no aspirin as patient just had TURP * # BPH s/p TURP: management as per urology # CAD s/p stents: on atenolol, atorvastatin and lisinopril # Hypertension: on atenolol and lisinopril DVT prophylaxis: SCDs Thank you for the courtesy of the consult. Please do not hesitate to reach out to hospitalist service with any questions or concerns. Inpatient E&M: [id number] Subs Hosp L2
[2020-09-07] MEDS: Atenolol 25 MG Tablet PO (10:06)
[2020-09-07] MEDS: Docusate Sodium 100 MG Capsule PO (10:06)
[2020-09-07] MEDS: Pantoprazole Sodium 40 MG Tablet PO (10:06)
--- NOTE | 2020-09-07 10:37 | NURSING ---
At 0839 pt called out stating he was having chest pain. Vital signs obtained HR 79 Resp 18 BP 158/75 Pulse ox 100%. EKG ordered and Dr Gonzalez made aware and consulted hospitalist . 1039 Pt reports chest pain is bed and he think it is coming from a disc in his back he always has problems with.
[2020-09-07 15:50] VITALS: BP 126/61; PULSE 77; RESP 18; TEMP 37.2; O2SAT 100
--- NOTE | 2020-09-07 16:56 | EKGRS_ITS ---
Test Reason : Blood Pressure : / mmHG Vent. Rate : 077 BPM Atrial Rate : 077 BPM P-R Int : 132 ms QRS Dur : 086 ms QT Int : 406 ms P-R-T Axes : 036 038 037 degrees QTc Int : 459 ms Sinus rhythm with sinus arrhythmia with frequent Premature ventricular complexes Otherwise normal ECG When compared with ECG of 07-SEP-2020 08:53, Non-specific change in ST segment in Inferior leads ST no longer depressed in Anterior leads T wave inversion no longer evident in Inferior leads T wave inversion no longer evident in Anterolateral leads Confirmed by IVETH PEARSON, HOLDEN ([id number]), writer editor MICHAEL WADE ([id number]) on 09/15/2020 9:00:23 A M Referred By: Liborio Gonzalez Confirmed By:CORINA LAZARO MD
[2020-09-07 17:18] VITALS: BP 138/70; PULSE 66; RESP 18; TEMP 37.2; O2SAT 99
== END 2020-09-07 18:00 | disposition home or self-care (01) | DRG 713 ==
LOC: SDC 16:25 → MS3 16:26
PROVIDERS: Anesthesiology; Student in an Organized Health Care Education/Training Program; Admitting Provider Urology; Referring Provider Urology; Visit Provider Urology
PROC: 0VB08ZZ Excision of Prostate, Via Natural or Artificial Opening Endoscopic (ICD-10-PCS; principal; 2020-09-05 10:45)
DX: N40.1 Benign prostatic hyperplasia with lower urinary tract symptoms (principal); N13.8 Other obstructive and reflux uropathy; Z23 Encounter for immunization; R07.89 Other chest pain; I25.10 Atherosclerotic heart disease of native coronary artery without angina pectoris; Z95.5 Presence of coronary angioplasty implant and graft; I10 Essential (primary) hypertension; K21.9 Gastro-esophageal reflux disease without esophagitis; E78.5 Hyperlipidemia, unspecified; M19.90 Unspecified osteoarthritis, unspecified site
CPT/HCPCS: 36415; 80048; 84484; 85025; 85027; 87635; 88305; 93005; 99251; C9803; G0008; J7030; J7120; 90686; G0463; J0744; J2405; U0003

== ENCOUNTER 2020-09-08 05:25 | Emergency (ER) | payer OTHER, MEDICARE, SELFPAY ==
[2020-09-05 14:17] VITALS: BMI 23.3
[2020-09-08 05:26] VITALS: BP 182/93; PULSE 79; RESP 16; TEMP 37.1; O2SAT 100; BMI 24.6
[2020-09-08 05:29] VITALS: BP 182/93; PULSE 79; RESP 16; TEMP 37.1; O2SAT 100
--- NOTE | 2020-09-08 05:49 | ED.VISSUMM ---
- ER Visit Summary Date of Service: 09/08/20 Chief Complaint: Unable to urinate History of Present Illness: The patient is a [address] Gonzalez in the [facility]. He had a TURP on September 05. He reports that he had hematuria while he was here. He was discharged from the hospital yesterday. Reports has been unable to urinate since approximately an hour after going home. He reports that he has suprapubic pressure and fullness. He said nausea without vomiting. Reports that his last bowel movement was yesterday evening after taking a suppository and it was hard. He denies any fever, chills, vomiting, or other complaints. Physical Examination: Vitals: Stable. Afebrile. General: Well-nourished and well-developed. Head: Normocephalic atraumatic. Neck: Supple, no lymphadenopathy. No JVD. Nontender. Cardiovascular: Regular rate and rhythm. No murmurs. Respiratory: No respiratory distress. Clear to auscultation bilaterally. Abdominal: Soft, mild suprapubic tenderness to palpation with an obvious distended bladder, nondistended, normal bowel sounds. No guarding, rebound, or peritoneal signs. Back: Nontender. Extremities: Nontender, no edema. Skin: Normal color, no rash. Neurologic: Alert and oriented ?3. Cranial nerves II through XII are intact. Normal strength and sensation. Psych: Normal affect. Test Results: Chem-7 is normal. Coags are normal. CBC shows an H&H 8.1 25.5, segmented for 73, lymphocytes 14. Patient's hemoglobin was 9.1 on the 10th and 8.4 on the 11th. Emergency Department Course and Treatment: Patient refused pain or nausea medications. He had a [place] catheter placed. This was irrigated manually and multiple clots were removed. He was then placed on continuous irrigation and the urine is just pink-tinged. It was irrigated manually again and there are no further clots.. Treatment Plan: Patient was discussed with Dr. Gonzalez. He is already on antibiotics. He will be discharged with the three-way catheter in place and instructed to follow-up in 1 week to have this removed. Return to emerge department if he feels that is not draining or has any other problems. Disposition: To home in improved and stable condition. Impression: 1. 3-day status post TURP. 2. Hematuria. 3. Anemia. This note was generated with [employer] software. It may contain incorrect words, spelling, and punctuation that were not noted in review of the chart prior to signing ED Disposition - Plan for ED Patient: Instructions: ED Hematuria Referrals: Liborio Gonzalez MD [STAFF PHYSICIAN] - 1 Week
[2020-09-08 05:52] LABS: Absolute Lymphocyte Count 1.24 X10^3/uL (0.83-4.51); Absolute Neutrophil Count 6.4 X10^3/uL (2.0-7.7); Basophil# 0.02 X10^3/uL; Basophil% 0.2 % (0-1); Eosinophil# 0.36 X10^3/uL; Eosinophils% 4.1 % (0-5); Hematocrit 25.5 % (40-54); Hemoglobin 8.1 g/dL (13.0-16.5); Lymphocyte # 1.24 X10^3/ul (4.0); Lymphocyte % 14.1 % (19-41); Mean Corp Hgb Conc 31.8 g/dL (32-36); Mean Corpuscular Hgb 28.5 pg (27.0-32.0); Mean Corpuscular Volume 89.8 fL (80-94); Mean Platelet Vol. 8.5 fl (6.2-12.0); Monocyte# 0.72 X10^3/uL; Monocyte% 8.2 % (0-10); NRBC Flagged by Analyzer 0 % (0-5); Neutrophil # 6.39 X10^3/uL (2.7-7.7); Neutrophil % 72.5 % (47-70); Platelet Count 146 K/mm3 (150-450); RBC Distribution Width SD 45.7 fl (35.1-43.9); Red Blood Count 2.84 M/mm3 (4.6-6.2); White Blood Count 8.8 K/mm3 (4.4-11.0)
[2020-09-08 06:12] LABS: Partial Thromboplast Time 27.2 Seconds (24.1-36.2)
[2020-09-08 06:15] LABS: Anion Gap 5 (5-15); BUN 14 mg/dL (7-18); BUN/Creat Ratio 15.6 RATIO (10-20); Calcium,Total 8.5 mg/dL (8.5-10.1); Chloride 107 mmol/L (98-107); EST Glomerular Filtration Rate 87 mL/min (>60); Est Glom Filt Rate - Afr Amer 106 mL/min (>60); Estimated Creatinine Clearance 68.74 ml/min; Glucose 106 mg/dL (74-106); Potassium 3.6 mmol/L (3.5-5.1); Sodium Level 140 mmol/L (136-145)
[2020-09-08] MEDS: Lidocaine Jelly 2% 20 ML Syringe (URO-JET) 20 APPLIC TOPICAL (06:15)
[2020-09-08 07:55] VITALS: BP 135/54; PULSE 72; RESP 16; O2SAT 98
--- NOTE | 2020-09-08 07:56 | ED.RN ---
manual irrigation performed, clear pink urine noted without clots. irrigation dc'd. bladder continued to drain and then leg bag placed.
== END 2020-09-08 08:01 | disposition home or self-care (01) ==
LOC: ED 06:22
PROVIDERS: Emergency Provider Emergency Medicine
DX: R31.9 Hematuria, unspecified (principal); D64.9 Anemia, unspecified; I25.10 Atherosclerotic heart disease of native coronary artery without angina pectoris; I10 Essential (primary) hypertension; Z90.79 Acquired absence of other genital organ(s)
CPT/HCPCS: 51702; 80048; 85025; 85610; 85730; 99281; 99285; A4216

== ENCOUNTER → 2020-10-28 12:21 | Outpatient (CLI) | payer MEDICARE, SELFPAY | PROVIDERS: Referring Provider Urology; Visit Provider Urology | DX: N39.0 Urinary tract infection, site not specified (principal) | CPT/HCPCS: 87077; 87086; 87088; 87186 ==

== ENCOUNTER → 2021-04-29 08:09 | Outpatient (CLI) | payer OTHER, MEDICARE, SELFPAY ==
--- NOTE | 2021-04-29 08:14 | CT_ITS ---
STUDY: CT BRAIN WITH AND WITHOUT CONTRAST REASON FOR EXAM: Male, 80 years old. Headaches for a couple of months. RADIATION DOSAGE (If Supplied By Facility): CTDIvol = ( 44.99 ) mGy, DLP = ( 1513.48 ) mGycm TECHNIQUE: Transaxial CT imaging of the brain was performed pre and post contrast administration. The examination was performed with intravenous administration of IV 50mL Isovue-370. Individualized dose optimization techniques were used for this CT. COMPARISON: None. FINDINGS: Normal soft tissue structures. Normal calvarium. There is mild cerebral atrophy with widening of the extra-axial spaces and ventricular dilatation. Normal white matter tracts of the cerebral hemispheres. Small lacunae is seen in the left basal ganglion. Age is indeterminate. Normal brainstem. Normal cerebellum. There is no intracranial hemorrhage. There are no findings of an acute ischemic infarction. Atherosclerotic calcification of the vertebral arteries and cavernous portions of the internal carotid arteries bilaterally. Normal visualized paranasal sinuses. CT/Brain/Head W/WO Contrast IMPRESSION: Chronic involutional changes of the brain. Electronically Signed: Elie Mckeon MD at 9:13 EDT , Service support ,
[2021-04-30 07:08] LABS: CREATININE FINGERSTICK 1.42 mg/dL (0.70-1.30); EGFR FINGERSTICK 51 mL/min (>60)
== END ==
DX: R51.9 Headache, unspecified (principal)
CPT/HCPCS: 70470; Q9967

== ENCOUNTER → 2022-04-19 | Outpatient (CLI) | payer MEDICARE, SELFPAY | END | disposition home or self-care (01) | LOC: LABSPEC 16:33 | PROVIDERS: Referring Provider Urology; Visit Provider Urology | DX: R31.0 Gross hematuria (principal) | CPT/HCPCS: 87086; 87088 ==

== ENCOUNTER 2022-09-17 16:14 | Emergency (ER) | payer OTHER, SELFPAY ==
[2022-09-17 16:16] VITALS: BP 124/97; PULSE 73; RESP 18; TEMP 36.7; O2SAT 99; BMI 24.7
[2022-09-17 16:19] VITALS: BP 124/97; PULSE 73; RESP 18; TEMP 36.7; O2SAT 99
--- NOTE | 2022-09-17 16:28 | EDS_ITS ---
HPI History of Present Illness Chief Complaint: Complaint Informant: patient Narrative Narrative: Sent in here after speaking with [facility] doctors with persistent dysuria and cloudy urine. Symptomatic for the past 6 days saw his doctors at [facility] on Tuesday. He is placed on Bactrim. He is also on amoxicillin for dental. Denies any allergies. Denies fevers. Denies vomiting. Denies back pain. Discussed with patient they reported any cultures to him he says none was given. Controlled hypertension hyperlipidemia history. PFSH PFSH Home Medications Omeprazole [Prilosec] 20 mg PO DAILY 10/03/15 [History Last Taken 09/05/20 08:00 20 MG] atenolol 50 mg tablet 25 mg PO DAILY 10/03/15 [History Last Taken 09/05/20 08:00 25 MG] atorvastatin 80 mg tablet 80 mg PO QHS 10/03/15 [History Last Taken Unknown] lisinopril 5 mg tablet 2.5 mg PO QHS 10/03/15 [History Last Taken 10/02/15] nitroglycerin 0.3 mg sublingual tablet (Nitrostat) 0.4 mg sublingual PRN PRN cp 10/03/15 [History Last Taken Unknown] acetaminophen 500 mg tablet 500 mg PO DAILY 07/27/20 [History Last Taken Unknown] levofloxacin 750 mg tablet 750 mg PO DAILY #4 tabs 09/17/22 [Rx Last Taken Unknown] Allergy/AdvReac Type Severity Reaction Status Date / Time No Known Allergies Allergy Verified 09/17/22 16:15 Social History Smoking Status: Never smoker ROS ROS ED Constitutional Constitutional ED: Denies chills, fever(s) or sweats Eyes Eyes: Denies change in vision ENT ENT ED: Denies dysphagia or sore throat Cardiovascular Cardiovascular: Denies chest pain, leg edema, palpitations or racing heartbeat Respiratory/Chest Respiratory/Chest: Denies cough, dyspnea or dyspnea on exertion Gastrointestinal Gastrointestinal: Denies abdominal pain, diarrhea, nausea or vomiting Genitourinary Genitourinary ED: Reports dysuria; Denies hematuria or urinary frequency Musculoskeletal Musculoskeletal: Denies back pain, extremity pain or neck pain Integumentary Denies rash or wounds Neurologic Neurologic: Denies headache(s), paresthesias or weakness EXAM Physical Exam Const Vital Signs: 09/17/22 16:16 09/17/22 16:19 Temperature 98.0 F 98.0 F Temperature Source Temporal Temporal Pulse Rate 73 73 Respiratory Rate 18 18 Blood Pressure 124/97 H 124/97 H Blood Pressure Mean 106 106 Pulse Ox 99 99 Oxygen Delivery Method Room Air Room Air Positive well nourished and well developed General Appearance ED: well developed and NAD HEENT Reports moist mucous membranes normocephalic and atraumatic Eyes PERRL, EOMs intact bilaterally and conjunctivae normal General Eye ED: Yes normal appearance of both eyes Neck no lymphadenopathy and supple General: Negative for tenderness Chest Wall Chest: Negative for tenderness Resp normal respiratory effort and normal air movement Effort and Inspection: symmetric chest movement; Negative for respiratory distress Cardio regular rate, regular rhythm and no murmurs Peripheral Pulses: pulses 2+ throughout GI normal to inspection, nondistended, normoactive bowel sounds and non-tender Palpation: Negative for guarding or rebound tenderness present Back/Spine no CVA tenderness and no thoracic nor lumbar tenderness Extremity normal to inspection General Extremety ED: Negative for edema or tenderness General Extremity: Negative for edema Neuro oriented x3 and no sensory deficits noted Sensorium / Orientation: awake and alert Skin no rashes or lesions noted and no wounds MDM MDM MDM Narrative Medical decision making narrative: Patient nontoxic vital signs stable. Persistent symptomatic urinary tract sym ptoms. Labs were checked white count 7.0 creatinine 1.23. Hemoglobin 14. Urine noted nitrites along with leukocytes and greater than 100 WBCs and bacteria. Culture sent. Currently on amoxicillin for dental issues will start on Bactrim for 3 days with no improvement. Unable obtain urine cultures [facility] due to outside system. Discussed with patient will cover with Levaquin for 5 days. He will stop his Bactrim and his amoxicillin as this covers for dental issues with Levaquin. Return precautions. Discussed with patient can discuss with his [facility] doctors for culture results as that should be resulted if performed ahead of time. All questions were answered. Lab Data Attestation: I reviewed the patient's lab results. Labs: Laboratory Results - last 24 hr 09/17/22 09/17/22 09/17/22 16:40 16:55 16:55 WBC 7.0 RBC 4.89 Hgb 14.0 Hct 42.0 MCV 85.9 MCH 28.6 MCHC 33.3 RDW Std Deviation 40.4 RDW Coeff of Alison 13.1 Plt Count 194 MPV 8.8 Immature Gran % (Auto) 0.900 Neut % (Auto) 74.1 H Lymph % (Auto) 12.7 L Smith % (Auto) 10.0 Eos % (Auto) 1.9 Baso % (Auto) 0.4 Absolute Neuts (auto) 5.2 Absolute Lymphs (auto) 0.89 Nucleated RBC % 0 Sodium 136 Potassium 4.2 Chloride 103 Carbon Dioxide 27.0 Anion Gap 6 BUN 25 H Creatinine 1.23 Estim Creat Clear Calc 48.70 Est GFR (MDRD) Af Amer 73 Est GFR (MDRD) Non-Af 60 BUN/Creatinine Ratio 20.3 H Glucose 101 Calcium 9.0 Urine Color Straw Urine Clarity Turbid Urine pH 6.0 Ur Specific [place] 1.015 Urine Protein 30 H Urine Glucose (UA) Normal Urine Ketones Negative Urine Occult Blood 50 H Urine Nitrite Positive H Urine Bilirubin Negative Urine Urobilinogen Normal Ur Leukocyte Esterase 500 H Urine RBC 0-5 SEEN Urine WBC >100 SEEN Ur Squamous Epith Cells 0 SEEN Urine Bacteria 3+ Urine Mucus 0 SEEN Discharge Plan Triage Chief Complaint: Complaint ED Provider: Niles Solano Dx/Rx/DC Orders Clinical Impression: Acute UTI, History of BPH, History of hypertension Instructions: ED Urinary Tract Infections in Men Prescriptions: New levofloxacin 750 mg tablet 750 mg PO DAILY Qty: 4 0RF Discontinued hydroxyzine pamoate 25 MG capsule 25 mg PO BID PRN PRN (Reason: NERVES) Label Comments: Nerves ciprofloxacin HCl 500 MG tablet 500 mg PO BID Qty: 14 0RF No Action lisinopril 5 MG tablet 2.5 mg PO QHS Label Comments: blood pressure atenolol 50 MG tablet 25 mg PO DAILY Label Comments: BLOOD PRESSURE Omeprazole [Prilosec] 40 MG capsule 20 mg PO DAILY Label Comments: acid reflux atorvastatin 80 MG tablet 80 mg PO QHS Label Comments: CHOLESTEROL nitroglycerin [Nitrostat] 0.3 MG tablet, sublingual 0.4 mg sublingual PRN PRN (Reason: cp) Label Comments: HEART acetaminophen 500 MG tablet 500 mg PO DAILY Rx Instructions: Patient takes every other day for arthritis Primary Care Provider: YESSENIAFEBRUARY Referrals: YESSENIAFEBRUARY [Other] Activity Restrictions/Additional Instructions: Persistent urinary tract infection noted. Normal white count, creatinine normal range. Take Levaquin additionally for the next 4 days starting tomorrow. Stop taking your amoxicillin and your Bactrim. May discuss with [facility] for urine cultures results from Tuesday, however new cultures were sent today. Return if any worsening symptoms. Disposition Disposition: Home, Self Care Discharge Date/Time: 09/17/22 18:32
[2022-09-17 16:48] LABS: Mucous, Urine 0 SEEN /hpf (<or=2+); Squamous Epithelial Cells - UA 0 SEEN /hpf (0-5)
[2022-09-17 16:52] LABS: Color, Urine Straw (Yellow); Glucose, Dipstick Normal (Normal); Ketone-Dipstick Negative (Negative); Leukocyte Esterase-Dipstick 500 /ul (Negative); Nitrite-Dipstick Positive (Negative); Occult Blood-Urine 50 /ul (Negative); Protein-Dipstick 30 mg/dl (Negative); Specific Gravity, Urine 1.015 (1.002-1.030); Urine Bilirubin Dipstick Negative (Negative); Urine Clarity Turbid (Clear); Urine Urobilinogen Normal (Normal)
[2022-09-17 17:15] LABS: Bacteria 3+ /hpf (None Seen); Red Blood Cells-Urine 0-5 SEEN /hpf (0-5); White Blood Cells >100 SEEN /hpf (0-5)
[2022-09-17 17:16] LABS: Absolute Lymphocyte Count 0.89 X10^3/uL (0.83-4.51); Absolute Neutrophil Count 5.2 X10^3/uL (2.0-7.7); Basophil# 0.03 X10^3/uL; Basophil% 0.4 % (0-1); Eosinophil# 0.13 X10^3/uL; Eosinophils% 1.9 % (0-5); Lymphocyte # 0.89 X10^3/ul (0.83-4.51); Lymphocyte % 12.7 % (19-41); Mean Corp Hgb Conc 33.3 g/dL (32-36); Mean Corpuscular Hgb 28.6 pg (27.0-32.0); Mean Corpuscular Volume 85.9 fL (80-94); Mean Platelet Vol. 8.8 fl (6.2-12.0); NRBC Flagged by Analyzer 0 % (0-5); Neutrophil # 5.21 X10^3/uL (2.7-7.7); Neutrophil % 74.1 % (47-70); Platelet Count 194 K/mm3 (150-450); RBC Distribution Width CV 13.1 % (11.6-14.6); RBC Distribution Width SD 40.4 fl (35.1-43.9); Red Blood Count 4.89 M/mm3 (4.6-6.2)
[2022-09-17 17:37] LABS: Anion Gap 6 (5-15); BUN 25 mg/dL (7-18); BUN/Creat Ratio 20.3 RATIO (10-20); Chloride 103 mmol/L (98-107); Creatinine, Serum 1.23 mg/dL (0.70-1.30); EST Glomerular Filtration Rate 60 mL/min (>60); Est Glom Filt Rate - Afr Amer 73 mL/min (>60); Glucose 101 mg/dL (74-106); Potassium 4.2 mmol/L (3.5-5.1); Sodium Level 136 mmol/L (136-145)
[2022-09-17] MEDS: levoFLOXacin 750 MG Tablet PO (18:26)
== END 2022-09-17 18:32 | disposition home or self-care (01) ==
PROVIDERS: Emergency Provider Emergency Medicine; Visit Provider Emergency Medicine
DX: N39.0 Urinary tract infection, site not specified (principal)
CPT/HCPCS: 80048; 81001; 85025; 87077; 87086; 87088; 87186; 99283; A4216